=== PATIENT | female | born 1960 | race Caucasian/White ===

== ENCOUNTER 2025-05-12 09:44 | Emergency (ER) | payer MEDICARE, BC ==
[2025-05-12] MEDS: Cephalexin 250 MG/5 ML Susp 200 ML Bottle PO ONE (10:26)
== END 2025-05-12 10:36 | disposition home or self-care (01) ==
LOC: DL.ED 09:44
DX: T81.89XA Other complications of procedures, not elsewhere classified, initial encounter (principal); L03.90 Cellulitis, unspecified
CPT/HCPCS: 87070; 87077; 87186; 99283; A9270